=== PATIENT | female | born 1950 | race Caucasian/White ===

== ENCOUNTER 2018-03-27 09:53 | Inpatient (IN) | payer MEDICARE, OTHER ==
[2018-03-27 10:21] LABS: PTT 27.6 SEC (22.9-36.1); Prothrombin Time 13.3 SEC (12.0-14.7)
[2018-03-27] MEDS ORDERED: hydrALAZINE 20 MG/ML VIAL ONE (10:21)
[2018-03-27 10:25] LABS: #Basophils 0.1 thou/uL (0.0-0.2); #Eosinphils 0.3 thou/uL (0.0-0.7); #Monocytes 0.8 thou/uL (0.11-0.59); #Neutrophils 7.6 thou/uL (1.40-6.50); %Basophils 1.3 % (0.0-1.0); %Eosinophils 2.6 % (0.0-10.0); %Lymphocytes 18.9 % (21.0-51.0); %Neutrophils 70.2 % (42.0-75.0); Hemoglobin 16.2 g/dL (12.0-16.0); Mean Corpuscular HGB CONC 33.8 g/dL (32.0-36.0); Mean Corpuscular Hemoglobin 28.4 pg (27.0-31.0); Mean Corpuscular Volume 83.9 fL (78.0-98.0); Mean Platelet Volume 8.3 fL (7.4-10.4); Platelet Count 223 thou/uL (130-400); Red Blood Cell (RBC) Count 5.69 mill/uL (4.20-5.40); White Blood Cell (WBC) Count 10.8 thou/uL (4.8-10.8)
[2018-03-27 10:32] LABS: ALT (SGPT) 32 U/L (8-55); AST (SGOT) 40 U/L (5-34); Albumin 4.1 g/dL (3.4-4.8); Alkaline Phosphatase 149 U/L (40-150); Anion Gap 16 mmol/L (10-20); BUN (Urea Nitrogen) 12 mg/dL (9.8-20.1); Calc. Creatinine Clearance 0 mL/min (70-130); Calcium 9.2 mg/dL (7.8-10.44); Carbon Dioxide 26 mmol/L (23-31); Chloride 99 mmol/L (98-107); Estimated GFR-MDRD 56; Globulin 3.4 g/dL (2.4-3.5); Glucose 382 mg/dL (80-115); Potassium 3.7 mmol/L (3.5-5.1); Protein, Total 7.5 g/dL (6.0-8.3); Sodium 137 mmol/L (136-145)
[2018-03-27 10:33] LABS: CKMB 1.6 ng/mL (0-6.6); Troponin I Less than 0.010 ng/mL (< 0.028)
[2018-03-27] MEDS ORDERED: Ondansetron HCl/PF 4 MG/2 ML Vial ONE ×2 (10:45→16:29)
--- NOTE | 2018-03-27 10:56 | CT ---
BRAIN CT WITHOUT IV CONTRAST: Date: 03/27/18 HISTORY: 67-year-old female with history of left-sided weakness. Last seen normal at 0830 hours. Stroke alert. FINDINGS: No focal mass or midline shift. No intra or extra-axial hemorrhage. Sinuses and mastoids are clear. IMPRESSION: No acute intracranial process. No mass or bleed. Findings discussed with Dr. Decker by phone at approximately 1025 hours. CODE CR. POS: [facility]
--- NOTE | 2018-03-27 11:13 | CT ---
CTA HEAD WITH AND WITHOUT IV CONTRAST UTILIZING IV CONTRAST AND 3D REFORMATTED IMAGING: INDICATIONS: Stroke protocol with slurred speech and left-sided weakness. Last seen normal at 0830 hours. COMPARISON: Noncontrast CT brain dated 03/17/2018 at 10:24 a.m. FINDINGS: No hemodynamically significant stenosis, occlusion, or aneurysmal formation is demonstrated. No abno rmal enhancement is noted. No midline shift is present. The skull and extracranial soft tissues marco ear within normal limits. IMPRESSION: No hemodynamically significant stenosis, occlusion, or aneurysmal formation demonstrated. Findings were called to Dr. Decker at 11:00 a.m. on 03/27/2018. CODE CR POS: [facility]
[2018-03-27] MEDS ORDERED: Nitroglycerin 2% Ointment 1 INCH/1 GM Packet ONE (11:20)
[2018-03-27] MEDS ORDERED: Iopamidol 370 76% 100 ML VIAL ONE (12:54)
[2018-03-27] MEDS ORDERED: Acetaminophen 325 MG TAB ONE (15:28)
[2018-03-27] MEDS ORDERED: Lorazepam 2 MG/ML VIAL ONE (15:45)
[2018-03-27] MEDS ORDERED: Ondansetron ODT 4 MG TAB ONE (16:22)
--- NOTE | 2018-03-27 18:23 | MRI ---
BRAIN MRI WITHOUT CONTRAST: 03/27/18 COMPARISON: None. HISTORY: Slurred speech with left sided weakness, assess for acute infarction. TECHNIQUE: Multiplanar and multisequence MR imaging of the brain is obtained without contrast. FINDINGS: There is a focus of restricted diffusion within the ventral aspect of the awilda just to the right of m idline, measuring 3-4 mm in transverse dimension x 1.2 cm in AP dimension. This is consistent with an acute infarction of the awilda. No additional area of acute infarction is seen. Arterial flow voids at axial level of skull base, appear grossly unremarkable on the T2 weighted imaging. Numerous small foci of increased T2 and FLAIR signal seen throughout the periventricular, deep, and s ubcortical white matter, evidence of significant small vessel disease. Axial gradient echo imaging demonstrates no evidence for intracranial hemorrhage. Regional bone marro w signal intensity appears grossly unremarkable. The visualized paranasal sinuses/mastoid air cells are grossly unremarkable. IMPRESSION: Evidence of acute infarction within the right aspect of the awilda. Evidence of significant small vesse l disease. No intracranial hemorrhage. POS: [facility]
[2018-03-27 20:16] VITALS: BMI 31.1
[2018-03-27] MEDS ORDERED: Acetaminophen 325 MG TAB PO PRN ×2 (20:49→22:18)
[2018-03-27] MEDS ORDERED: Ondansetron ODT 4 MG TAB SL PRN (20:49)
[2018-03-27] MEDS ORDERED: Ondansetron HCl/PF 4 MG/2 ML Vial IVP PRN (20:49)
[2018-03-27] MEDS ORDERED: HumaLOG 300 UNITS/3 ML VIAL SC PRN (21:42)
[2018-03-27] MEDS ORDERED: Dextrose 50% Abboject 50 ML SYRINGE IVP PRN (21:42)
[2018-03-27] MEDS ORDERED: Dextrose 5% in Water 1,000 ML IV PRN (21:42)
[2018-03-27] MEDS ORDERED: HumaLOG 300 UNITS/3 ML VIAL SC SCH (21:45)
[2018-03-27] MEDS ORDERED: Nitroglycerin 2% Ointment 1 INCH/1 GM Packet TOP SCH (22:00)
[2018-03-27 22:26] LABS: Troponin I Less than 0.010 ng/mL (< 0.028)
--- NOTE | 2018-03-28 03:59 | HP ---
REASON FOR ADMISSION: Acute CVA, hypertensive urgency. HISTORY OF PRESENT ILLNESS: The patient gives history of having gone to shopping with her grandkids. She was in [employer] along with her niece and grandkids. The patient suddenly felt funny in her left upper and lower extremity. She was essentially dragging her left foot, as she felt it was heavy. Had the same feeling with her left upper extremity as well, she also had trouble forming words and finally the niece took her to [facility] ER. On arrival in [facility] ER, patient's blood pressure was 220/120. She has had multiple workups done at the ER, which showed acute CVA in the right awilda. patient is right-handed. She is able to move all extremities. Currently, she is feeling better with talking. No complaints of chest pain, headache, palpitation, PND, or orthopnea. PAST MEDICAL AND SURGICAL HISTORY: Hypertension, diabetes mellitus type 2, dyslipidemia, psoriasis, adenoidectomy, tonsillectomy, right knee surgery x3, appendectomy, hysterectomy. CURRENT MEDICATIONS: Patient has not been able to take any medications for the last year and half due to financial issues. She has insurance, but no drug coverage. ALLERGIES: PENICILLIN, SULFA, and BELLADONNA ALKALOIDS. PERSONAL HISTORY: Does not abuse alcohol or drugs. No history of smoking. FAMILY HISTORY: Both parents at the age of 77 years. Mother has had history of stroke. Father of massive VA. Patient has a son who is living and is in his 30s. CODE STATUS: FULL. Power of admin secretary is her son. REVIEW OF SYSTEMS: The following complete review of systems was negative, unless otherwise mentioned in the HPI or below: Constitutional: Weight loss or gain, ability to conduct usual activities. Skin: Rash, itching. Eyes: Double vision, pain. ENT/Mouth: Nose bleeding, neck stiffness, pain, tenderness. Cardiovascular: Palpitations, dyspnea on exertion, orthopnea. Respiratory: Shortness of breath, wheezing, cough, hemoptysis, fever, or night sweats. Gastrointestinal: Poor appetite, abdominal pain, heartburn, nausea, vomiting, constipation, or diarrhea. Genitourinary: Urgency, frequency, dysuria, nocturia. Musculoskeletal: Pain, swelling. Neurologic/Psychiatric: Anxiety, depression. Allergy/Immunologic: Skin rash, bleeding tendency. PHYSICAL EXAMINATION: GENERAL: Patient is a 67-year-old female who is currently not in any acute distress. VITAL SIGNS: Blood pressure of 220/120 on arrival, pulse 82 per minute, respiratory rate 18 per minute, temperature 98.3 degrees Fahrenheit, saturating 96% on room air. NECK: Supple, no elevated JVD. HEENT: Extraocular muscles intact. Pupils reacting to light. Oral cavity, mucous membranes are moist. No exudates or congestion. CARDIOVASCULAR SYSTEM: S1, S2 heard. Regular rhythm. RESPIRATORY SYSTEM: Air entry 2+ bilateral. No rales or rhonchi. ABDOMEN: Soft, bowel sounds heard. No tenderness, rigidity, or guarding. EXTREMITIES: No peripheral edema or calf tenderness. Patient has multiple plaques on both upper and lower extremities and the abdomen as well. CENTRAL NERVOUS SYSTEM: Cranial nerves are grossly intact. Strength left side is 4/5 in upper and lower extremity. Right is 5/5, reflexes are 2+ bilateral. Cerebellar signs are intact. Gait was not tested. PSYCHIATRIC SYSTEM: Patient's mood is euthymic. No hallucinations or delusions. LABORATORY DATA AND X-RAY FINDINGS: EKG done shows sinus rhythm at 72 beats per minute. There are signs of LVH seen. White count of 10, H&H 16 and 47, platelet count 223 with 70% neutrophils, MCV is 83. PT, INR, PTT within normal limits. Electrolytes stable. BUN 12, creatinine 0.9. Serum glucose 382, AST 40, ALT 32, alkaline phosphatase 149. Two sets of troponin is negative. Albumin is 4.1. CT angio head done shows no hemodynamically significant stenosis or occlusion or aneurysm formation. MRI brain shows acute infarct in the right aspect of awilda. There is significant small vessel disease, no intracranial hemorrhage was seen. CT brain done showed no acute intracranial process. CLINICAL IMPRESSION AND PLAN: Patient will be admitted to stroke unit for acute cerebrovascular accident in the right awilda with left-sided mild hemiparesis. She has been noncompliant with medications due to financial reasons. I will place her on full dose of aspirin, Lopressor at 25 mg twice daily and lisinopril at 10 mg daily. We will also place her on glipizide 5 mg twice daily and Lipitor 20 mg p.o. at bedtime. Lipid profile will be obtained in the morning. Stroke protocol will be followed. Upon discharge, patient needs to be placed on 4 dollar pills, so that she can afford medication. Also, she probably will need some sort of medication for her psoriasis. Echo with 2D Doppler for LV function will be obtained. MELISSA
[2018-03-28 05:42] LABS: #Basophils 0.1 thou/uL (0.0-0.2); #Eosinphils 0.3 thou/uL (0.0-0.7); #Lymphocytes 2.4 thou/uL (1.20-3.40); #Neutrophils 6.4 thou/uL (1.40-6.50); %Basophils 0.7 % (0.0-1.0); %Eosinophils 2.6 % (0.0-10.0); %Lymphocytes 23.5 % (21.0-51.0); %Neutrophils 63.3 % (42.0-75.0); Hemoglobin 14.4 g/dL (12.0-16.0); Mean Corpuscular HGB CONC 33.5 g/dL (32.0-36.0); Mean Corpuscular Volume 86.8 fL (78.0-98.0); Mean Platelet Volume 8.1 fL (7.4-10.4); Platelet Count 199 thou/uL (130-400); RBC Distribution Width 12.3 % (11.5-14.5); Red Blood Cell (RBC) Count 4.97 mill/uL (4.20-5.40); White Blood Cell (WBC) Count 10.1 thou/uL (4.8-10.8)
[2018-03-28 05:45] LABS: Anion Gap 11 mmol/L (10-20); BUN (Urea Nitrogen) 11 mg/dL (9.8-20.1); Calc. Creatinine Clearance 90 mL/min (70-130); Carbon Dioxide 31 mmol/L (23-31); Chloride 101 mmol/L (98-107); Cholesterol 204 mg/dl (< 200 Desired); Estimated GFR-MDRD 70; Glucose 156 mg/dL (80-115); HDL Cholesterol 34 mg/dL (>60 Neg Risk); LDL Cholesterol, Calculated 136 mg/dL; Sodium 140 mmol/L (136-145); Triglycerides 169 mg/dL (Less than 150)
[2018-03-28 05:49] LABS: Potassium 2.9 mmol/L (3.5-5.1)
[2018-03-28] MEDS: glipiZIDE 5 MG TAB PO SCH ×2 (06:24→17:19)
[2018-03-28] MEDS: Potassium Chloride 20 MEQ TAB PO SCH ×4 (06:31→23:26)
[2018-03-28] MEDS ORDERED: Metoprolol Tartrate 25 MG TAB PO SCH (09:00)
[2018-03-28] MEDS ORDERED: Lisinopril 10 MG TAB PO SCH (09:00)
[2018-03-28] MEDS: Enoxaparin Sodium 40 MG/0.4 ML SYRINGE SC SCH (09:37)
[2018-03-28] MEDS: Famotidine 20 MG TAB PO SCH ×2 (09:37→22:11)
[2018-03-28] MEDS: Aspirin 325 mg Enteric Coated Tablet PO SCH (09:37)
[2018-03-28] MEDS ORDERED: Loratadine 10 MG TAB PO PRN (10:04)
[2018-03-28] MEDS ORDERED: Eucerin (Mineral Oil/Petrolatum,White) 30 gm Jar TOP PRN (10:04)
[2018-03-28] MEDS ORDERED: Zolpidem Tartrate 5 MG TAB PO PRN (10:04)
[2018-03-28] MEDS ORDERED: Chloraseptic Spray 180 ml Bottle PO PRN (10:04)
[2018-03-28] MEDS ORDERED: Artificial Tears 18 DROP/0.9 ML EA EYE PRN (10:04)
[2018-03-28] MEDS ORDERED: Ondansetron HCl/PF 4 MG/2 ML Vial IVP PRN (10:04)
[2018-03-28] MEDS ORDERED: Mag-Al 1200 mg/1200 mg/30 ML UDCUP PO PRN (10:04)
[2018-03-28] MEDS ORDERED: Diabetic Tussin 200 MG/10 ML UDCUP PO PRN (10:04)
[2018-03-28] MEDS ORDERED: hydrALAZINE 20 MG/ML VIAL SLOW IVP PRN (10:04)
[2018-03-28] MEDS ORDERED: Bisacodyl 10 MG SUPP PR PRN (10:04)
[2018-03-28] MEDS ORDERED: Sodium Chloride 0.65% Nasal 44 ML BOT EA NARE PRN (10:04)
[2018-03-28] MEDS ORDERED: Ondansetron ODT 4 MG TAB PO PRN (10:04)
[2018-03-28] MEDS ORDERED: Lorazepam 1 MG TAB PO PRN (10:04)
[2018-03-28] MEDS ORDERED: HYDROcodone/Acetaminophen 5/325 mg Tablet PO PRN (10:04)
[2018-03-28] MEDS ORDERED: Senokot 8.6 MG TAB PO PRN (10:04)
[2018-03-28] MEDS ORDERED: Milk Of Magnesia 30 ML UDCUP PO PRN (10:04)
[2018-03-28] MEDS ORDERED: Loperamide HCl 2 MG CAP PO PRN (10:04)
--- NOTE | 2018-03-28 11:34 | PDOC.PN ---
- Subjective Encounter Start Date: 03/28/18 Encounter Start Time: 07:20 -: old records requested/rev Patient seen and examined. No new complaints. No overnight events - Objective Resuscitation Status: Resuscitation Status FULL:Full Resuscitation MAR Reviewed: Yes Vital Signs & Weight: Vital Signs (12 hours) Temp Pulse Pulse Pulse Resp BP BP 03/28/18 09:37 97.3 F L 60 16 191/90 H 03/28/18 07:47 97.3 F L 60 16 03/28/18 07:30 58 L 58 L 196/91 H 03/28/18 03:11 98 F 55 L 20 03/27/18 23:42 97.8 F 57 L 20 BP BP BP Pulse Ox 03/28/18 09:37 91 L 03/28/18 07:47 210/110 H 91 L 03/28/18 07:30 210/110 H 03/28/18 03:11 189/82 H 96 03/27/18 23:42 203/86 H 97 Result Diagrams: 03/28/18 05:14 03/28/18 05:14 Additional Labs: Accuchecks 03/28/18 03/28/18 03/27/18 10:48 05:47 21:15 POC Glucose 238 H 156 H 340 H Radiology Reviewed by me: Yes (mri, cta, ct brain ) EKG Reviewed by me: Yes (nsr) Phys Exam - Physical Examination Constitutional: NAD HEENT: PERRLA, moist MMs, sclera anicteric Neck: no JVD, supple Respiratory: no wheezing, no rales, no rhonchi Cardiovascular: RRR, no significant murmur, no rub Gastrointestinal: soft, non-tender, no distention, positive bowel sounds Musculoskeletal: no edema, pulses present Neurological: non-focal, normal sensation, moves all 4 limbs Lymphatic: no nodes Psychiatric: normal affect, A&O x 3 Skin: no rash, normal turgor Dx/Plan (1) Right pontine CVA Code(s): I63.50 - CEREB INFRC DUE TO UNSP OCCLS OR STENOS OF UNSP CEREB ARTERY Status: Acute (2) Hypokalemia Code(s): E87.6 - HYPOKALEMIA Status: Acute (3) Diabetes type 2, uncontrolled Code(s): E11.65 - TYPE 2 DIABETES MELLITUS WITH HYPERGLYCEMIA Status: Chronic (4) Dyslipidemia Code(s): E78.5 - HYPERLIPIDEMIA, UNSPECIFIED Status: Chronic (5) Hypertension Code(s): I10 - ESSENTIAL (PRIMARY) HYPERTENSION Status: Chronic (6) Obesity (BMI 30.0-34.9) Code(s): E66.9 - OBESITY, UNSPECIFIED Status: Chronic - Plan cont current plan of care, plan discussed w/ family, PT/OT, medical social worker * will increase lisinopril * add hydralazin * change metoprolol to coreg * will give latha 4 dollar meds on discharge as she can not afford meds * medication reviewed as below * symptomatic treatment. * will add metformin tomorrow * discussed with family Review of Systems - Review of Systems Eyes: negative: Pain, Vision Change, Conjunctivae Inflammation, Eyelid Inflammation, Redness, Other ENT: negative: Ear Pain, Ear Discharge, Nose Pain, Nose Discharge, Nose Congestion, Mouth Pain, Mouth Swelling, Throat Pain, Throat Swelling, Other Respiratory: negative: Cough, Dry, Shortness of Breath, Hemoptysis, SOB with Excertion, Pleuritic Pain, Sputum, Wheezing Cardiovascular: negative: chest pain, palpitations, orthopnea, paroxysmal nocturnal dyspnea, edema, light headedness, other Gastrointestinal: negative: Nausea, Vomiting, Abdominal Pain, Diarrhea, Constipation, Melena, Hematochezia, Other Genitourinary: negative: Dysuria, Frequency, Incontinence, Hematuria, Retention , Other Musculoskeletal: negative: Neck Pain, Shoulder Pain, Arm Pain, Back Pain, Hand Pain, Leg Pain, Foot Pain, Other Skin: negative: Rash, Lesions, Johnnie, Bruising, Other - Medications/Allergies Allergies/Adverse Reactions: Allergies Allergy/AdvReac Type Severity Reaction Status Date / Time belladonna alkaloids Allergy Verified 03/27/18 19:54 Penicillins Allergy Verified 03/27/18 19:54 Sulfa (Sulfonamide Allergy Verified 03/27/18 19:54 Antibiotics) Medications: Current Medications Acetaminophen (Tylenol) 650 mg PO Q4H PRN PRN Reason: Headache/Fever or Pain Hydrocodone Bitart/Acetaminophen ([place] 5/325) 1 tab PO Q4H PRN PRN Reason: Moderate Pain (4-6) Al Hydroxide/Mg Hydroxide (Maalox) 15 ml PO Q4H PRN PRN Reason: Heartburn or Indigestion Artificial Tears (Tears Naturale) 0 drop EA EYE PRN PRN PRN Reason: Dry Eyes Aspirin (Ecotrin) 325 mg PO DAILY [facility] Last Admin: 03/28/18 09:37 Dose: 325 mg Atorvastatin Calcium (Lipitor) 20 mg PO HS [facility] Bisacodyl (Dulcolax) 10 mg IN DAILYPRN PRN PRN Reason: Constipation Carvedilol (Coreg) 12.5 mg PO BID-[facility] Enoxaparin Sodium (Lovenox) 40 mg SC 0900 [facility] Last Admin: 03/28/18 09:37 Dose: 40 mg Famotidine (Pepcid) 20 mg PO BID [facility] Last Admin: 03/28/18 09:37 Dose: 20 mg Glipizide (Glucotrol) 5 mg PO BID-AC [facility] Last Admin: 03/28/18 06:24 Dose: 5 mg Guaifenesin (Robitussin Sf) 200 mg PO Q4H PRN PRN Reason: Cough Hydralazine HCl (Apresoline) 10 mg SLOW IVP Q4H PRN PRN Reason: Systolic BP > 180 Hydralazine HCl (Apresoline) 25 mg PO BID [facility] Insulin Human Lispro (Humalog) 0 units SC .MODERATE SLIDING SC PRN; Protocol PRN Reason: MODERATE SLIDING SCALE Lisinopril (Zestril) 20 mg PO BID [facility] Loperamide HCl (Imodium) 2 mg PO PRN PRN PRN Reason: Diarrhea/Loose Stools Loratadine (Claritin) 10 mg PO DAILYPRN PRN PRN Reason: Sinus Symptoms Lorazepam (Ativan) 1 mg PO Q4H PRN PRN Reason: Anxiety/Agitation Magnesium Hydroxide (Milk Of Magnesium) 30 ml PO DAILYPRN PRN PRN Reason: Constipation Mineral Oil/White Petrolatum (Eucerin Cream) 0 gm TOP BIDPRN PRN PRN Reason: Dry Skin Ondansetron HCl (Zofran Odt) 4 mg PO Q6H PRN PRN Reason: Nausea/Vomiting Ondansetron HCl (Zofran) 4 mg IVP Q6H PRN PRN Reason: Nausea/Vomiting Phenol (Chloraseptic [place] 180 Ml Bot) 0 ml PO PRN PRN PRN Reason: Sore Throat Potassium Chloride (K-Dur) 40 meq PO Q6HR [facility] Stop: 03/29/18 00:00 Last Admin: 03/28/18 06:31 Dose: 40 meq Senna (Senokot) 2 tab PO HSPRN PRN PRN Reason: Constipation Sodium Chloride ([place] Nasal [place] 0.65%) 0 ml EA NARE QIDPRN PRN PRN Reason: Nasal Congestion Sodium Chloride (Flush - Normal Saline) 10 ml IVF Q12HR [facility] Sodium Chloride (Flush - Normal Saline) 10 ml IVF PRN PRN PRN Reason: Saline Flush Zolpidem Tartrate (Ambien) 5 mg PO HSPRN PRN PRN Reason: Insomnia
--- NOTE | 2018-03-28 15:16 | ULT ---
CAROTID DOPPLER: Ultrasound Doppler study is performed of the extracranial carotid arteries. Color Doppler with spect ral analysis and velocity recordings obtained. INDICATION: CVA. FINDINGS: Ultrasound images show mild echogenic plaque in the bulb regions. Velocity recordings are within nor mal range. Vertebrals show antegrade flow. No evidence of significant stenosis identified in either internal carotid artery by velocity study. IMPRESSION: 1. Mild echogenic plaque seen bilaterally. 2. No evidence of significant stenosis identified. POS: [facility]
[2018-03-28] MEDS: Carvedilol 6.25 MG TAB PO SCH (17:19)
[2018-03-28] MEDS ORDERED: Atorvastatin Calcium 20 MG TAB PO SCH (21:00)
[2018-03-28] MEDS ORDERED: hydrALAZINE 25 MG TAB PO SCH (21:00)
[2018-03-28] MEDS: Lisinopril 20 MG TAB PO SCH (22:10)
--- NOTE | 2018-03-29 00:28 | CON ---
NEUROLOGIC CONSULTATION DATE OF CONSULTATION: 03/28/2018 CONSULTING PHYSICIAN: Hospitalist Service. IMPRESSION: 1. Left pontine infarct with significant improvement in her initial symptoms. 2. Diabetes. 3. Hypertension. 4. Hyperlipidemia. PLAN: 1. Aspirin 81 mg per day. 2. Statin. 3. Follow up with her primary care physician. 4. Follow up on echocardiogram as an outpatient. HISTORY OF PRESENT ILLNESS: Ms. Lomax is a 67-year-old white female who has been noncompliant with [facility] care due to financial issues. She was noted to have some difficulty speaking and that the left side felt a bit weak. She came into the emergency room for evaluation. CT scan did not show any ac megan bleed and MRI of the brain showed a left pontine infarct that was acute. CTA of the carotids and cerebral vessels were all unremarkable. Her lipid panel showed a ratio of 6.0. She reports she has not taken any medication for cholesterol in over 2 years. PAST MEDICAL HISTORY: As listed above. ALLERGIES: BELLADONNA ALKALOIDS, PENICILLIN, AND SULFA. SOCIAL HISTORY: No tobacco or alcohol use. She lives at home independently. FAMILY HISTORY: Noncontributory. REVIEW OF SYSTEMS: No complaint of headache, nausea, vomiting, vertigo, double vision, difficulty sw allowing, lateralized numbness, alteration of consciousness or headache. PHYSICAL EXAMINATION: GENERAL: She is a well-nourished middle-aged woman in no distress. HEENT: Pupils are equal and reactive. Conjunctivae are clear. Oropharynx clear. NECK: Supple. No lymphadenopathy. EXTREMITIES: No cyanosis. NEUROLOGIC: She is alert and appropriate. Her speech is fluent and clear. Cranial nerves II throug h XII are intact. Motor exam showed symmetric strength bilaterally. [id number]-[id number] and zfpm-[id number] movements were equal. Sensation was intact to light touch. She is able to walk independently. IMAGING: EKG showed normal sinus rhythm. SUMMARY: A 67-year-old woman with a lacunar infarction in the awilda, she has done remarkably well. S he has several risk factors, I agree with starting aspirin and a statin bring her cholesterol panel t o a better ratio. I will be happy to follow up with her as an outpatient.
[2018-03-29 07:56] VITALS: TEMP 99.6
[2018-03-29] MEDS ORDERED: hydrALAZINE 25 MG TAB PO SCH (09:00)
[2018-03-29] MEDS: Carvedilol 6.25 MG TAB PO SCH (09:51)
[2018-03-29] MEDS: glipiZIDE 5 MG TAB PO SCH (09:51)
[2018-03-29] MEDS: Enoxaparin Sodium 40 MG/0.4 ML SYRINGE SC SCH (09:52)
[2018-03-29] MEDS: Aspirin 325 mg Enteric Coated Tablet PO SCH (09:52)
[2018-03-29] MEDS: Famotidine 20 MG TAB PO SCH (09:52)
[2018-03-29] MEDS: Lisinopril 20 MG TAB PO SCH (09:53)
--- NOTE | 2018-03-29 09:54 | PDOC.PN ---
- Subjective Encounter Start Date: 03/29/18 Encounter Start Time: 07:20 Patient seen and examined. No new complaints. No overnight events - Objective Resuscitation Status: Resuscitation Status FULL:Full Resuscitation MAR Reviewed: Yes Vital Signs & Weight: Vital Signs (12 hours) Temp Pulse Resp BP BP Pulse Ox 03/29/18 08:10 99.6 F 63 16 92 L 03/29/18 07:55 99.6 F 63 16 172/88 H 92 L 03/29/18 04:31 98.4 F 69 18 173/75 H 94 L 03/29/18 00:28 52 L 03/29/18 00:00 98.1 F 52 L 18 186/78 H 94 L 03/28/18 22:12 63 182/89 H 03/28/18 22:10 98.4 F 52 L 18 182/89 H 91 L I&O: 03/28/18 03/29/18 03/30/18 06:59 06:59 06:59 Intake Total 300 Balance 300 Result Diagrams: 03/28/18 05:14 03/28/18 05:14 Additional Labs: Accuchecks 03/29/18 03/28/18 03/28/18 05:35 20:26 16:57 POC Glucose 142 H 191 H 119 H 03/28/18 10:48 POC Glucose 238 H Radiology Reviewed by me: Yes (echo) EKG Reviewed by me: Yes (nsr) Phys Exam - Physical Examination Constitutional: NAD HEENT: PERRLA, moist MMs, sclera anicteric Neck: no JVD, supple Respiratory: no wheezing, no rales, no rhonchi Cardiovascular: RRR, no significant murmur, no rub Gastrointestinal: soft, non-tender, no distention, positive bowel sounds Musculoskeletal: no edema, pulses present Neurological: non-focal, normal sensation, moves all 4 limbs Lymphatic: no nodes Psychiatric: normal affect, A&O x 3 Skin: no rash, normal turgor Dx/Plan (1) Right pontine CVA Code(s): I63.50 - CEREB INFRC DUE TO UNSP OCCLS OR STENOS OF UNSP CEREB ARTERY Status: Acute (2) Hypokalemia Code(s): E87.6 - HYPOKALEMIA Status: Acute (3) Diabetes type 2, uncontrolled Code(s): E11.65 - TYPE 2 DIABETES MELLITUS WITH HYPERGLYCEMIA Status: Chronic (4) Dyslipidemia Code(s): E78.5 - HYPERLIPIDEMIA, UNSPECIFIED Status: Chronic (5) Hypertension Code(s): I10 - ESSENTIAL (PRIMARY) HYPERTENSION Status: Chronic (6) Obesity (BMI 30.0-34.9) Code(s): E66.9 - OBESITY, UNSPECIFIED Status: Chronic - Plan cont current plan of care * medication reviewed as below * symptomatic treatment * stable for discharge * see discharge summery * discharge medication reconciliation done. Review of Systems - Review of Systems Eyes: negative: Pain, Vision Change, Conjunctivae Inflammation, Eyelid Inflammation, Redness, Other ENT: negative: Ear Pain, Ear Discharge, Nose Pain, Nose Discharge, Nose Congestion, Mouth Pain, Mouth Swelling, Throat Pain, Throat Swelling, Other Respiratory: negative: Cough, Dry, Shortness of Breath, Hemoptysis, SOB with Excertion, Pleuritic Pain, Sputum, Wheezing Cardiovascular: negative: chest pain, palpitations, orthopnea, paroxysmal nocturnal dyspnea, edema, light headedness, other Gastrointestinal: negative: Nausea, Vomiting, Abdominal Pain, Diarrhea, Constipation, Melena, Hematochezia, Other Genitourinary: negative: Dysuria, Frequency, Incontinence, Hematuria, Retention , Other Musculoskeletal: negative: Neck Pain, Shoulder Pain, Arm Pain, Back Pain, Hand Pain, Leg Pain, Foot Pain, Other Skin: negative: Rash, Lesions, Johnnie, Bruising, Other - Medications/Allergies Allergies/Adverse Reactions: Allergies Allergy/AdvReac Type Severity Reaction Status Date / Time belladonna alkaloids Allergy Verified 03/27/18 19:54 Penicillins Allergy Verified 03/27/18 19:54 Sulfa (Sulfonamide Allergy Verified 03/27/18 19:54 Antibiotics) Medications: Current Medications Acetaminophen (Tylenol) 650 mg PO Q4H PRN PRN Reason: Headache/Fever or Pain Hydrocodone Bitart/Acetaminophen ([place] 5/325) 1 tab PO Q4H PRN PRN Reason: Moderate Pain (4-6) Al Hydroxide/Mg Hydroxide (Maalox) 15 ml PO Q4H PRN PRN Reason: Heartburn or Indigestion Artificial Tears (Tears Naturale) 0 drop EA EYE PRN PRN PRN Reason: Dry Eyes Aspirin (Ecotrin) 325 mg PO DAILY [facility] Last Admin: 03/29/18 09:52 Dose: 325 mg Atorvastatin Calcium (Lipitor) 20 mg PO HS [facility] Last Admin: 03/28/18 22:12 Dose: 20 mg Bisacodyl (Dulcolax) 10 mg MD DAILYPRN PRN PRN Reason: Constipation Carvedilol (Coreg) 12.5 mg PO BID-[facility] Last Admin: 03/29/18 09:51 Dose: 12.5 mg Enoxaparin Sodium (Lovenox) 40 mg SC 0900 [facility] Last Admin: 03/29/18 09:52 Dose: Not Given Famotidine (Pepcid) 20 mg PO BID [facility] Last Admin: 03/29/18 09:52 Dose: 20 mg Glipizide (Glucotrol) 5 mg PO BID-AC [facility] Last Admin: 03/29/18 09:51 Dose: 5 mg Guaifenesin (Robitussin Sf) 200 mg PO Q4H PRN PRN Reason: Cough Hydralazine HCl (Apresoline) 10 mg SLOW IVP Q4H PRN PRN Reason: Systolic BP > 180 Last Admin: 03/29/18 00:28 Dose: 10 mg Hydralazine HCl (Apresoline) 25 mg PO TID [facility] Last Admin: 03/29/18 09:53 Dose: 25 mg Insulin Human Lispro (Humalog) 0 units SC .MODERATE SLIDING SC PRN; Protocol PRN Reason: MODERATE SLIDING SCALE Last Admin: 03/28/18 13:06 Dose: 4 unit Lisinopril (Zestril) 20 mg PO BID [facility] Last Admin: 03/29/18 09:53 Dose: 20 mg Loperamide HCl (Imodium) 2 mg PO PRN PRN PRN Reason: Diarrhea/Loose Stools Loratadine (Claritin) 10 mg PO DAILYPRN PRN PRN Reason: Sinus Symptoms Lorazepam (Ativan) 1 mg PO Q4H PRN PRN Reason: Anxiety/Agitation Magnesium Hydroxide (Milk Of Magnesium) 30 ml PO DAILYPRN PRN PRN Reason: Constipation Mineral Oil/White Petrolatum (Eucerin Cream) 0 gm TOP BIDPRN PRN PRN Reason: Dry Skin Ondansetron HCl (Zofran Odt) 4 mg PO Q6H PRN PRN Reason: Nausea/Vomiting Ondansetron HCl (Zofran) 4 mg IVP Q6H PRN PRN Reason: Nausea/Vomiting Phenol (Chloraseptic [place] 180 Ml Bot) 0 ml PO PRN PRN PRN Reason: Sore Throat Senna (Senokot) 2 tab PO HSPRN PRN PRN Reason: Constipation Sodium Chloride ([place] Nasal [place] 0.65%) 0 ml EA NARE QIDPRN PRN PRN Reason: Nasal Congestion Sodium Chloride (Flush - Normal Saline) 10 ml IVF Q12HR [facility] Last Admin: 03/29/18 09:50 Dose: Not Given Sodium Chloride (Flush - Normal Saline) 10 ml IVF PRN PRN PRN Reason: Saline Flush Zolpidem Tartrate (Ambien) 5 mg PO HSPRN PRN PRN Reason: Insomnia
[2018-03-29 10:52] VITALS: BP 199/89
--- NOTE | 2018-03-29 12:11 | DIS ---
DATE OF ADMISSION: 03/27/2018 DATE OF DISCHARGE: 03/29/2018 PRIMARY CARE PHYSICIAN: Rj Tony D.O. DISCHARGE DISPOSITION: Home. PRIMARY DISCHARGE DIAGNOSES: Right pontine cerebrovascular accident, hypokalemia. SECONDARY DISCHARGE DIAGNOSES: Left ventricular hypertrophy, obesity with BMI 31, hypertension, dysl ipidemia, diabetes type 2, medication noncompliance. PRIMARY PROCEDURE/OPERATION: None. RADIOLOGICAL INVESTIGATION: CT brain was negative for any acute intracranial process. CT [place] was also negative for any acute intracranial process. MRI brain showed right pontine cerebrov ascular accident. Carotid Doppler showed atherosclerotic plaque, but no acute stenosis. Echocardiog dexter showed LVH. SIGNIFICANT LABORATORY DATA: WBC 10.1, hemoglobin 14.4, platelet 199. INR 1.0. Sodium 140, potassi um 2.9, BUN 11, creatinine 0.82, LDL 136, cholesterol 204, triglyceride 169, AST 40, ALT 32, alkaline phosphatase is 149. Cardiac enzymes negative. Albumin 4.1. DISCHARGE MEDICATIONS: Aspirin 325 mg p.o. daily, Lipitor 20 mg p.o. at bedtime, Coreg 12.5 mg p.o. b.i.d., glipizide 5 mg p.o. b.i.d., hydralazine 25 mg p.o. t.i.d., lisinopril 20 mg p.o. b.i.d. CONTRAINDICATIONS: None. CODE STATUS: FULL CODE. INPATIENT CONSULTANTS: Dr. Bigg Mary, neurologist, was consulted while in hospital. TEST RESULTS PENDING ON DISCHARGE: None. ALLERGIES: BELLADONNA ALKALOIDS, PENICILLIN, and SULFA. DISCHARGE PLAN: Post hospital, the patient will follow up with primary care physician in 1 week. HOSPITAL COURSE: A 67-year-old female who has medication noncompliance. She has multiple risk facto rs for stroke and she was not taking any medication because she cannot afford medication. The patien brissa was admitted by Dr. Leyva on 03/27/2018. She went to [facility] be cause she was having difficulty walking as well as difficulty speaking. Initial CT brain and CT [place] was negative. Subsequently, the patient had MRI brain that showed right pontine CVA. T he patient's weakness significantly improved. She was not tracking while in hospital. She was hyper tensive while in hospital and that is why we have to start above-mentioned medications. Her choleste rol is also very high and that is why we started statin therapy. At this point, the patient is kept on Coreg and lisinopril for blood pressure and subsequently, we added hydralazine as well. She will follow up with primary care physician for further adjustment of medication. Necessary patient educat ion about compliance with medication and dietary education. Healthy lifestyle discussed with the narayan tirado. The patient was evaluated by Neurology and they recommended aspirin therapy, statin therapy and blood pressure control and risk factor modification. The patient had hypokalemia which was corrected with replacement. The patient is overall doing very well. She is ambulatory. She does not have any weakness. She wan ts to go home today. The patient is seen and examined at bedside today. Please see my progress note from today for further detail.
--- NOTE | 2018-03-30 22:09 | EKG ---
Test Reason : Blood Pressure : / mmHG Vent. Rate : 072 BPM Atrial Rate : 072 BPM P-R Int : 160 ms QRS Dur : 090 ms QT Int : 442 ms P-R-T Axes : 012 -44 039 degrees QTc Int : 483 ms Sinus rhythm with occasional Premature ventricular complexes Left axis deviation Voltage criteria for left ventricular hypertrophy Cannot rule out Septal infarct , age undetermined Nonspecific ST abnormalty Abnormal ECG Confirmed by UBALDO SONI, LAVON ([id number]), metropolitan editor SHANON FLORENCE ([id number]) on 03/30/2018 10:09:09 PM Referred By: Confirmed By:LAVON CONNER MD
== END 2018-03-29 11:10 | disposition home or self-care (01) | DRG 65 ==
LOC: SCSER 09:53 → 2SE 18:36
PROVIDERS: ADMIT Internal Medicine; ATTEND Internal Medicine
DX: I63.8 Other cerebral infarction (principal); G81.94 Hemiplegia, unspecified affecting left nondominant side; Z88.0 Allergy status to penicillin; Z88.2 Allergy status to sulfonamides; Z88.8 Allergy status to other drugs, medicaments and biological substances; I16.0 Hypertensive urgency; I10 Essential (primary) hypertension; E66.9 Obesity, unspecified; Z68.31 Body mass index [BMI] 31.0-31.9, adult; E78.5 Hyperlipidemia, unspecified; Z91.19 Patient's noncompliance with other medical treatment and regimen; E11.9 Type 2 diabetes mellitus without complications; E87.6 Hypokalemia; R29.713 NIHSS score 13
CPT/HCPCS: 36415; 36416; 70450; 70496; 70551; 80048; 80053; 80061; 82553; 84484; 85025; 85610; 85730; 93005; 93306; 93880; 96374; 96375; 96376; A4216; G8978-GP-CJ; G8979-GP-CJ; G8980-GP-CJ; G8987-GO-CJ; G8988-GO-CI; G8999-GN-CH; G9158-GN-CH; G9186-GN-CH; J0360; J1650; J2060; J2405; Q0162

== ENCOUNTER 2018-04-05 09:26 | Emergency (ER) | payer MEDICARE, OTHER | END 2018-04-05 10:48 | LOC: ERS 09:26 | DX: I10 Essential (primary) hypertension (principal); E11.9 Type 2 diabetes mellitus without complications; J45.909 Unspecified asthma, uncomplicated; E78.5 Hyperlipidemia, unspecified; Z79.891 Long term (current) use of opiate analgesic; Z79.899 Other long term (current) drug therapy | CPT/HCPCS: 36416; 99283 ==

== ENCOUNTER 2019-08-13 16:43 | Emergency (ER) | payer MEDICARE ==
--- NOTE | 2019-08-13 17:11 | RAD ---
XR Foot Rt 3 View STANDARD HISTORY: Injury, pain to the great toe FINDINGS: No fracture or dislocation is identified.
== END 2019-08-13 17:36 | disposition home or self-care (01) ==
LOC: ERS 16:43
DX: S90.31XA Contusion of right foot, initial encounter (principal); E11.9 Type 2 diabetes mellitus without complications; E78.5 Hyperlipidemia, unspecified; E78.00 Pure hypercholesterolemia, unspecified; I10 Essential (primary) hypertension; J45.909 Unspecified asthma, uncomplicated; Z86.73 Personal history of transient ischemic attack (TIA), and cerebral infarction without residual deficits; Z79.82 Long term (current) use of aspirin; Z79.899 Other long term (current) drug therapy; Z79.84 Long term (current) use of oral hypoglycemic drugs; W20.8XXA Other cause of strike by thrown, projected or falling object, initial encounter

== ENCOUNTER 2020-11-11 19:10 | Inpatient (IN) | payer MEDICARE ==
[~2020-11-11 19:10] MED LIST: Dexamethasone 20 MG/5 ML VIAL ONE; Glycopyrrolate 0.2 MG/ML 5 ML SYRINGE ONE; Lidocaine 1% PF 5 ML VIAL ONE; Ondansetron PF 4 MG/2 ML Vial ONE; PROPOFOL 200 MG/20 ML VIAL ONE; Rocuronium Bromide 10 MG/ML (10ML VIAL) ONE; Succinylcholine 200 MG/10 ml SYRINGE FS ONE
[2020-11-11] MEDS ORDERED: Fentanyl 100 MCG/2 ML VIAL ONE (20:32)
[2020-11-11] MEDS ORDERED: Iothalamate Meglumine 60% 50 ML VIAL FS ONE (20:34)
[2020-11-11] MEDS ORDERED: Ondansetron ODT 4 MG TAB PO PRN (21:29)
[2020-11-11] MEDS ORDERED: Bisacodyl 5 MG TAB PO PRN (21:29)
[2020-11-11] MEDS ORDERED: SUGAMMADEX SODIUM 500 MG/5 ML VIAL ONE (21:39)
[2020-11-11] MEDS ORDERED: Labetalol HCl 100 MG/20 ML VIAL ONE (21:49)
[2020-11-11] MEDS ORDERED: Ondansetron HCl/PF 4 MG/2 ML Vial IVP PRN (21:51)
[2020-11-11] MEDS ORDERED: Labetalol HCl 100 MG/20 ML VIAL SLOW IVP SCH (22:00)
[2020-11-11] MEDS ORDERED: Ondansetron PF 4 MG/2 ML Vial ONE (22:27)
[2020-11-11 23:23] VITALS: BMI 32.1
[2020-11-11] MEDS ORDERED: Metoclopramide HCl 10 MG/2 ML VIAL IVP SCH (23:45)
[2020-11-12] MEDS ORDERED: Labetalol HCl 100 MG/20 ML VIAL SLOW IVP PRN (01:10)
[2020-11-12] MEDS ORDERED: hydrALAZINE 20 MG/ML VIAL SLOW IVP PRN (01:10)
--- NOTE | 2020-11-12 01:11 | PDOC.HHP ---
Hospitalist HPI fever, leg pain History of Present Illness: Patient is a 70 year old female with PMH T2DM, HLD, HTN, seasonal asthma, CVA in 2018 who presents as transfer from [facility] for sepsis and infected kidney stone. Patient symptoms began 3 days ago w/ L leg pain, fever, nausea, anorexia, diarrhea and dysuria. She went to [facility], work up there included CT A/P which was significant for bilateral nephrolithiasis as well as L ureteral calculus w/ mild L hydronephrosis. She was septic w/ fever to 103 and WBC 19 with UA positive for UTI. Dr Sims consulted from [place], he recommended transfer to [facility] patient was taken to OR for stent placement, she is on floor now, pain has improved and symptoms overall better now, started on abx by ED and urology, ceftriaxone. Allergies/Adverse Reactions: Allergy/AdvReac Type Severity Reaction Status Date / Time belladonna alkaloids Allergy Verified 12/05/19 21:32 Penicillins Allergy Verified 12/05/19 21:32 Sulfa (Sulfonamide Allergy Verified 12/05/19 21:32 Antibiotics) Home Medications: Medication Instructions Recorded Confirmed Type Aspirin [Ecotrin Regular Strength] 325 mg PO DAILY #30 tab 03/29/18 Rx Atorvastatin Calcium [Lipitor] 20 mg PO HS #30 tab 03/29/18 11/12/20 Rx Carvedilol [Coreg] 12.5 mg PO BID #60 tab 03/29/18 11/12/20 Rx hydrALAZINE [Apresoline] 25 mg PO BID 11/12/20 11/12/20 History metFORMIN [Glucophage] 1,000 mg PO BID 11/12/20 11/12/20 History Past History: MEDICAL HISTORY diabetes, Type II, hyperlipidemia, high cholesterol, hypertension, asthma (SEASONAL, stroke 2018. SURGICAL HISTORY adenoids, tonsillectomy, RIGTH KNEE X3, appendectomy, hysterectomy. FAMILY HISTORY no significant family history SOCIAL HISTORY Patient drinks socially, twice a month, Lives at home, with family, Patient denies drug use, Patient has no smoking history. Hospitalist CITLALI BILLS Constitutional: reports: fever, chills, weakness, malaise. denies: sweats, other Eyes: denies: pain, vision change, conjunctivae inflammation, eyelid inflammation, redness, other ENT: denies: ear pain, ear discharge, nose pain, nose discharge, nose congestion, mouth pain, mouth swelling, throat pain, throat swelling, other Respiratory: denies: cough, dry, shortness of breath, hemoptysis, SOB with excertion, pleuritic pain, sputum, wheezing, other Cardiovascular: denies: chest pain, palpitations, orthopnea, paroxysmal noc. dyspnea, edema, light headedness, other Gastrointestinal: reports: nausea, vomiting, abdominal pain, diarrhea, other (flank pain). denies: constipation, melena, hematochezia Genitourinary: reports: dysuria. denies: frequency, incontinence, hematuria, retention, other Musculoskeletal: reports: back pain. denies: neck pain, shoulder pain, arm pain, hand pain, leg pain, foot pain, other Skin: denies: rash, lesions, shasha, bruising, other Neurological: denies: weakness, numbness, incoordination, change in speech, confusion, seizures, other All other systems reviewed; all pertinent +/- noted in HPI/Subj Hospitalist Exam Vitals: Vital Signs (12 hours) Temp Pulse Resp BP BP Pulse Ox 11/11/20 22:52 94 L 11/11/20 22:45 97.6 F 93 20 154/84 H 93 L 11/11/20 21:50 103 H 203/106 H Weight Weight 192 lb 11.2 oz General Appearance: NAD, awake alert Eye: PERRL, anicteric sclera ENT: normocephalic atraumatic, no oropharyngeal lesions, moist mucosa Neck: supple, symmetric, no JVD, no thyromegaly, no lymphadenopathy, no carotid bruit Heart: RRR, no murmur, no gallops, no rubs, normal peripheral pulses Respiratory: CTAB, no wheezes, no rales, no ronchi, normal chest expansion, no tachypnea, normal percussion Gastrointestinal: soft, non-tender, non-distended, normal bowel sounds, no palpable masses, no hepatomegaly, no splenomegaly, no bruit Extremities: no cyanosis, no clubbing, no edema Skin: normal turgor, no lesions, no rashes Neurological: cranial nerve grossly intact, normal sensation to touch, no weakness, no focal deficits, no new deficit Musculoskeletal: normal tone, normal strength, no muscle wasting Psychiatric: normal affect, normal behavior, A&O x 3 Hospitalist Results Additional comment: labs, imaging, ED documents, medications, vitals reviewed from this hospital and [facility]. Hospitalist H&P A/P Plan: Patient is a 70 year old female with PMH T2DM, HLD, HTN, seasonal asthma, CVA in 2018 who presents as transfer from [facility] for sepsis and infected kidney stone. # nephrolithiasis # UTI # sepsis # infected stone suspected Patient symptoms began 3 days ago w/ L leg pain, fever, nausea, anorexia, diarrhea and dysuria. She went to [facility], work up there included CT A/P which was significant for bilateral nephrolithiasis as well as L ureteral calculus w/ mild L hydronephrosis. She was septic w/ fever to 103 and WBC 19 with UA positive for UTI. Dr Sims consulted from [place], he recommended transfer to [facility] patient was taken to OR for stent placement, she is on floor now, pain has improved and symptoms overall better now, started on abx by ED and urology, ceftriaxone. - admit to floor - continue abx - follow cultures - IVF - patient is s/p ureteral stone placement by Dr Sims 11/11/20 # T2DM - SSI # HLD - resume home medications # seasonal asthma - PRN nebs ordered # fatty liver disease - outpatient management recommended
[2020-11-12] MEDS: cefTRIAXone\\ROCEPHIN 2 GM in Sodium Chloride 0.9% 100 ML IVPB SCH ×2 (01:43→23:47)
[2020-11-12] MEDS: Sodium Chloride 0.9% 1,000 ML IV SCH ×2 (01:43→06:07)
--- NOTE | 2020-11-12 02:47 | CON ---
DATE OF CONSULTATION: 11/11/2020 REASON FOR CONSULTATION: Fever, flank pain, left UPJ stone. HISTORY OF PRESENT ILLNESS: Ms. Lomax is a 70-year-old female, presented to the emergency room today with a several-day history of a painful migraine. On presentation to the emergency room, she admitted to additional complaints of nausea, vomiting, and abdominal discomfort. She also had a fever of 102 degrees with chills. As part of her workup, a CT scan was performed. The CT scan demonstrates a 10 mm stone at the left UPJ. There were some additional small nonobstructing stones in both the right and left kidney. She denies any prior history of stone disease. She did not notice any gross hematuria. Further evaluation in the emergency room also demonstrated elevated white blood cell count, elevated lactic acid level, and bacteria in her urine. A urine culture has been sent and she has been given ceftriaxone in the emergency room. I was consulted for further evaluation and treatment. PAST MEDICAL HISTORY: Significant for type 2 diabetes mellitus, hyperlipidemia, high cholesterol, hypertension, seasonal asthma, CVA in 2018. PAST SURGICAL HISTORY: Includes right knee surgery x3, appendectomy, tonsillectomy, adenoidectomy, hysterectomy. SOCIAL HISTORY: She drinks alcohol one or two times a month, but not to excess. She is a nonsmoker. ALLERGIES: BELLADONNA, PENICILLIN, SULFA. FAMILY HISTORY: Noncontributory. REVIEW OF SYSTEMS: RESPIRATORY: No recent problems with her asthma. CARDIOVASCULAR: Denies chest pain or palpitations. GASTROINTESTINAL: Denies chronic constipation or diarrhea. GENITOURINARY: Please see history of present illness. PHYSICAL EXAMINATION: VITAL SIGNS: Most recent blood pressure 145/94, pulse 76, respiratory rate 18, O2 saturation 95% on room air. GENERAL: She is awake and alert. She is in no distress at this time. CHEST: Clear to auscultation. No wheezing noted. CARDIOVASCULAR: Regular rate and rhythm. No murmurs auscultated. ABDOMEN: Soft, nontender. No palpable masses. No peritoneal signs. EXTREMITIES: No edema. LABORATORY DATA AND IMAGING: White count 19.1, hemoglobin 14.6, hematocrit 44.3. Creatinine 1.51. COVID testing negative. CT scan; a 10 mm left UPJ stone with proximal hydronephrosis, 2 mm or smaller stones noted in both the left and right kidney, nonobstructing. IMPRESSION: Ms. Lomax has a left ureteropelvic junction stone, unlikely to pass with evidence of proximal hydronephrosis. She also has signs and symptoms consistent with urinary tract infection including abnormal urinalysis, elevated white blood cell count, and fever. I recommended upper urinary tract drainage by left ureteral stent placement. The procedure, potential limitations, alternatives, and complications have been discussed with her. She does wish to proceed. PLAN: Cystoscopy, left double-J stent placement. Job ID: [id number]
--- NOTE | 2020-11-12 03:41 | OP ---
DATE OF PROCEDURE: 11/11/2020 PREOPERATIVE DIAGNOSIS: Left ureteropelvic junction stone. POSTOPERATIVE DIAGNOSIS: Left ureteropelvic junction stone. PROCEDURES PERFORMED: Cystoscopy, left double-J stent placement. ANESTHESIA: General. INDICATIONS FOR PROCEDURE: Ms. Lomax is a 70-year-old female with a left UPJ stone, elevated white count, and fever. She is being brought to the operating room for left ureteral stent placement. DESCRIPTION OF PROCEDURE: The patient was given general anesthesia and IV antibiotics. She was sterilely prepped and draped in the lithotomy position. Cystoscope was passed into the bladder. Bladder was examined in its entirety. There were no mucosal lesions seen. The left ureteral orifice was intubated with a floppy tip guidewire, which was passed cephalad under fluoroscopic control. A 6 x 24 double-J stent was passed over the guidewire and coiled in the left renal pelvis and in the bladder as determined fluoroscopically and cystoscopically. The string was cut. The bladder was drained. The cystoscope was removed. The patient tolerated the procedure well and was transferred to the recovery room in stable condition. COMPLICATION: None. ESTIMATED BLOOD LOSS: Minimal. SPECIMENS: None. Job ID: [id number]
[2020-11-12] MEDS ORDERED: Dextrose 5% in Water 1,000 ML IV PRN (06:12)
[2020-11-12] MEDS ORDERED: Dextrose 50% Abboject 50 ML SYRINGE SLOW IVP PRN (06:12)
[2020-11-12 06:30] LABS: #Basophils 0.2 thou/uL (0.0-0.2); #Lymphocytes 0.3 thou/uL (1.20-3.40); #Monocytes 0.2 thou/uL (0.11-0.59); #Neutrophils 14.1 thou/uL (1.40-6.50); %Basophils 1.1 % (0.0-1.0); %Eosinophils 0.1 % (0.0-10.0); %Lymphocytes 2.1 % (21.0-51.0); %Monocytes 1.3 % (0.0-10.0); %Neutrophils 95.4 % (42.0-75.0); Hemoglobin 13.2 g/dL (12.0-16.0); Mean Corpuscular HGB CONC 33.5 g/dL (32.0-36.0); Mean Corpuscular Hemoglobin 28.5 pg (27.0-31.0); Mean Corpuscular Volume 85.3 fL (78.0-98.0); Mean Platelet Volume 9.6 fL (7.4-10.4); Platelet Count 178 thou/uL (130-400); RBC Distribution Width 12.8 % (11.5-14.5); Red Blood Cell (RBC) Count 4.61 mill/uL (4.20-5.40); White Blood Cell (WBC) Count 14.8 thou/uL (4.8-10.8)
[2020-11-12] MEDS: HumaLOG 300 UNITS/3 ML VIAL SC PRN ×3 (06:56→21:32)
[2020-11-12 07:01] LABS: Anion Gap 16 mmol/L (10-20); BUN (Urea Nitrogen) 29 mg/dL (9.8-20.1); BUN/Creatinine Ratio 21.48; Calc. Creatinine Clearance 54 mL/min (70-130); Calcium 8.3 mg/dL (7.8-10.44); Carbon Dioxide 21 mmol/L (23-31); Chloride 98 mmol/L (98-107); Glucose 281 mg/dL (80-115); Phosphorus 3.6 mg/dL (2.3-4.7); Sodium 132 mmol/L (136-145)
[2020-11-12] MEDS: hydrALAZINE 25 MG TAB PO SCH ×3 (08:19→20:42)
[2020-11-12] MEDS: metFORMIN 500 MG TAB PO SCH ×2 (08:19→17:35)
[2020-11-12] MEDS: Enoxaparin Sodium 30 MG/0.3 ML SYRINGE SC SCH (08:20)
[2020-11-12] MEDS: Famotidine 20 MG TAB PO SCH (08:20)
[2020-11-12] MEDS: Carvedilol 6.25 MG TAB PO SCH ×2 (08:20→17:34)
[2020-11-12] MEDS ORDERED: Potassium Chloride 20 MEQ TAB PO SCH (08:45)
--- NOTE | 2020-11-12 14:20 | PDOC.HOSPP ---
- Subjective Encounter Date: 11/12/20 Encounter Time: 09:20 Subjective: Patient seen this morning. She does not have any acute complaints or concerns other than quite anxious to go home. status post left ureteral stent placement. She needs to follow-up with a urologist as outpatient. Currently she has elevated blood pressure on the high white count obviously related to the infection as well as post procedure. - Objective Vital Signs & Weight: Vital Signs (12 hours) Temp Pulse Resp BP BP Pulse Ox 11/12/20 11:55 97.6 F 71 14 121/77 95 11/12/20 08:20 171/81 H 11/12/20 08:19 82 171/81 H 11/12/20 08:00 97.7 F 69 14 171/81 H 95 11/12/20 07:00 98.0 F 82 20 131/79 95 11/12/20 03:29 98.2 F 80 18 138/81 96 11/12/20 02:30 98.2 F 81 18 131/80 95 Weight Admit Weight 192 lb 11.2 oz Weight 192 lb 11.2 oz I&O: 11/11/20 11/12/20 11/13/20 06:59 06:59 06:59 Intake Total 900 Output Total 520 Balance 380 Result Diagrams: 11/12/20 05:45 11/12/20 05:45 Additional Labs: Accuchecks 11/12/20 11/12/20 11:52 06:51 POC Glucose 257 H 264 H Hospitalist ROS - Medication Medications: Active Medications Generic Name Dose Route Start Last Admin Trade Name Freq PRN Reason Stop Dose Admin Carvedilol 12.5 mg 11/12/20 08:00 11/12/20 08:20 Carvedilol 6.25 Mg Tab PO 12.5 mg BID-WM PRATIK Administration Enoxaparin Sodium 30 mg 11/12/20 09:00 11/12/20 08:20 Enoxaparin Sodium 30 Mg/0.3 Ml Syringe SC 30 mg 0900 PRATIK Administration Famotidine 20 mg 11/12/20 09:00 11/12/20 08:20 Famotidine 20 Mg Tab PO 20 mg DAILY PRATIK Administration Hydralazine HCl 25 mg 11/12/20 09:00 11/12/20 08:19 Hydralazine 25 Mg Tab PO 25 mg TID PRATIK Administration Sodium Chloride 1,000 mls @ 75 mls/hr 11/11/20 22:00 11/12/20 06:07 Normal Saline 0.9% IV 1,000 mls .[id number] PRATIK Administration Ceftriaxone Sodium 2 gm/ 100 mls @ 200 mls/hr 11/11/20 22:00 11/12/20 01:43 Sodium Chloride IVPB Not Given 2200 [facility] Insulin Human Lispro 0 units 11/12/20 06:12 11/12/20 12:31 Humalog 300 Units/3 Ml Vial SC 4 unit .MILD SLIDING SCALE PRN Administration Mild Correctional Scale Metformin HCl 1,000 mg 11/12/20 08:00 11/12/20 08:19 Metformin 500 Mg Tab PO 1,000 mg BID-WM PRATIK Administration Hospitalist Exam Vitals: Vital Signs (12 hours) Temp Pulse Resp BP BP Pulse Ox 11/12/20 11:55 97.6 F 71 14 121/77 95 11/12/20 08:20 171/81 H 11/12/20 08:19 82 171/81 H 11/12/20 08:00 97.7 F 69 14 171/81 H 95 11/12/20 07:00 98.0 F 82 20 131/79 95 11/12/20 03:29 98.2 F 80 18 138/81 96 11/12/20 02:30 98.2 F 81 18 131/80 95 Weight Admit Weight 192 lb 11.2 oz Weight 192 lb 11.2 oz General Appearance: NAD, awake alert Eye: PERRL ENT: normocephalic atraumatic Neck: supple Heart: RRR Respiratory: CTAB, normal chest expansion Gastrointestinal: soft, normal bowel sounds Neurological: no focal deficits Musculoskeletal: generalized weakness Psychiatric: normal affect, normal behavior, A&O x 3 Hosp A/P - Plan 10 year old female with PMH T2DM, HLD, HTN, seasonal asthma, CVA in 2018 who presents as transfer from [facility] for sepsis and infected kidney stone. # nephrolithiasis # UTI # sepsis # infected stone suspected Patient symptoms began 3 days ago w/ L leg pain, fever, nausea, anorexia, diarrhea and dysuria. [facility] CT A/P which was significant for bilateral nephrolithiasis as well as L ureteral calculus w/ mild L hydronephrosis. S - Dr Sims consulted from [place], s/p stent placement, - patient is s/p ureteral stone placement by Dr Sims 11/11/20 -Follow-up on the clinical pro progression. There is no cultures.-Follow-up on the WBC trend continue the ceftriaxone for another 24 hours and then can be discharged with Augmentin if she is clinically stable. Accelerated hypertension -possibly related to the stress. She is on hydralazine home dose along with as needed as well as labetalol. She also continues with the Coreg home dose. # T2DM - SSI -On Metformin # HLD - resume home medications # seasonal asthma - PRN nebs ordered She continued to improve under white count normalized then DC with Augmentin likely tomorrow. Follows with the urologist for drain removal.
[2020-11-13] MEDS: Sodium Chloride 0.9% 1,000 ML IV SCH (01:39)
[2020-11-13 06:02] LABS: #Lymphocytes 0.7 thou/uL (1.20-3.40); #Monocytes 0.6 thou/uL (0.11-0.59); #Neutrophils 11.9 thou/uL (1.40-6.50); %Basophils 0.1 % (0.0-1.0); %Eosinophils 0.3 % (0.0-10.0); %Lymphocytes 5.6 % (21.0-51.0); %Monocytes 4.5 % (0.0-10.0); %Neutrophils 89.5 % (42.0-75.0); Mean Corpuscular HGB CONC 32.4 g/dL (32.0-36.0); Mean Corpuscular Hemoglobin 27.9 pg (27.0-31.0); Mean Platelet Volume 9.2 fL (7.4-10.4); Platelet Count 213 thou/uL (130-400); Red Blood Cell (RBC) Count 4.66 mill/uL (4.20-5.40); White Blood Cell (WBC) Count 13.3 thou/uL (4.8-10.8)
[2020-11-13] MEDS: Acetaminophen 325 MG TAB PO PRN ×2 (06:44→17:51)
[2020-11-13 06:51] LABS: Anion Gap 11 mmol/L (10-20); BUN (Urea Nitrogen) 26 mg/dL (9.8-20.1); Calc. Creatinine Clearance 62 mL/min (70-130); Calcium 8.3 mg/dL (7.8-10.44); Carbon Dioxide 23 mmol/L (23-31); Chloride 104 mmol/L (98-107); Glucose 143 mg/dL (80-115); Magnesium 1.7 mg/dL (1.6-2.6); Sodium 135 mmol/L (136-145)
[2020-11-13] MEDS ORDERED: Magnesium 2 GM/50 ML 2 GM in Premix Bag 1 BAG IVPB SCH (08:00)
[2020-11-13] MEDS: Enoxaparin Sodium 30 MG/0.3 ML SYRINGE SC SCH (08:29)
[2020-11-13] MEDS: Carvedilol 6.25 MG TAB PO SCH ×2 (08:29→17:48)
[2020-11-13] MEDS: hydrALAZINE 25 MG TAB PO SCH ×3 (08:30→21:24)
[2020-11-13] MEDS: metFORMIN 500 MG TAB PO SCH ×2 (08:30→17:48)
[2020-11-13] MEDS: Famotidine 20 MG TAB PO SCH (08:31)
[2020-11-13] MEDS: Potassium Chloride 20 MEQ TAB PO SCH ×3 (08:31→17:48)
--- NOTE | 2020-11-13 10:43 | PDOC.HOSPP ---
- Subjective Encounter Date: 11/13/20 Encounter Time: 08:45 Subjective: Patient seen and examined for sepsis due to UTI. Continues to have fever with generalized body aches. Also complains of nausea with poor appetite. - Objective Vital Signs & Weight: Vital Signs (12 hours) Temp Pulse Resp BP BP Pulse Ox 11/13/20 08:30 84 174/73 H 11/13/20 08:29 174/73 H 11/13/20 07:58 102.2 F H 84 16 174/73 H 96 11/13/20 06:43 69 11/13/20 04:00 98.3 F 62 15 163/82 H 94 L 11/13/20 00:22 97.7 F 58 L 14 143/77 H 92 L Weight Admit Weight 192 lb 11.2 oz Weight 192 lb 11.2 oz I&O: 11/12/20 11/13/20 11/14/20 06:59 06:59 06:59 Intake Total 900 800 Output Total 520 2050 Balance 380 -1250 Result Diagrams: 11/13/20 05:20 11/13/20 05:20 Additional Labs: Accuchecks 11/13/20 11/12/20 11/12/20 05:42 21:14 16:11 POC Glucose 138 H 213 H 156 H 11/12/20 11:52 POC Glucose 257 H Abnormal Lab Results - Last 48 hrs 11/12/20 05:45: Sodium 132 L, Potassium 3.0 L, Carbon Dioxide 21 L, BUN 29 H, Creatinine 1.35 H, Albumin 3.0 L 11/12/20 05:45: WBC 14.8 H, Neutrophils % 95.4 H, Lymphocytes % 2.1 L, Basophils % 1.1 H, Neutrophils # 14.1 H, Lymphocytes # 0.3 L 11/13/20 05:20: Sodium 135 L, Potassium 3.0 L, BUN 26 H, Creatinine 1.18 H 11/13/20 05:20: WBC 13.3 H, Neutrophils % 89.5 H, Lymphocytes % 5.6 L, Neutrophils # 11.9 H, Lymphocytes # 0.7 L, Monocytes # 0.6 H Radiology Reviewed by me: Yes (CT abdomenleft hydronephrosis) Hospitalist ROS - Review of Systems Constitutional: reports: fever, weakness, malaise. denies: chills, sweats, other Cardiovascular: denies: chest pain, palpitations, orthopnea, paroxysmal noc. dyspnea, edema, light headedness, other Gastrointestinal: reports: nausea. denies: vomiting, abdominal pain, diarrhea, constipation, melena, hematochezia, other - Medication Medications: Active Medications Generic Name Dose Route Start Last Admin Trade Name Freq PRN Reason Stop Dose Admin Acetaminophen 650 mg 11/11/20 21:29 11/13/20 06:44 Acetaminophen 325 Mg Tab PO 650 mg Q4H PRN Administration Headache/Fever/Mild Pain (1-3) Carvedilol 12.5 mg 11/12/20 08:00 11/13/20 08:29 Carvedilol 6.25 Mg Tab PO 12.5 mg BID-WM PRATIK Administration Enoxaparin Sodium 30 mg 11/12/20 09:00 11/13/20 08:29 Enoxaparin Sodium 30 Mg/0.3 Ml Syringe SC 30 mg 0900 PRATIK Administration Famotidine 20 mg 11/12/20 09:00 11/13/20 08:31 Famotidine 20 Mg Tab PO 20 mg DAILY PRATIK Administration Hydralazine HCl 25 mg 11/12/20 09:00 11/13/20 08:30 Hydralazine 25 Mg Tab PO 25 mg TID PRATIK Administration Sodium Chloride 1,000 mls @ 75 mls/hr 11/11/20 22:00 11/13/20 01:39 Normal Saline 0.9% IV 1,000 mls .[id number] PRATIK Administration Ceftriaxone Sodium 2 gm/ 100 mls @ 200 mls/hr 11/11/20 22:00 11/12/20 23:47 Sodium Chloride IVPB 100 mls 2200 PRATIK Administration Magnesium Sulfate 2 gm/ Device 50 mls @ 50 mls/hr 11/13/20 08:00 11/13/20 08:29 IVPB 11/13/20 12:00 50 mls NOW PRATIK Administration Insulin Human Lispro 0 units 11/12/20 06:12 11/12/20 21:32 Humalog 300 Units/3 Ml Vial SC 3 unit .MILD SLIDING SCALE PRN Administration Mild Correctional Scale Labetalol HCl 20 mg 11/12/20 01:10 11/13/20 06:43 Labetalol Hcl 100 Mg/20 Ml Vial SLOW IVP 20 mg Q4H PRN Administration SBP > 160 use first Metformin HCl 1,000 mg 11/12/20 08:00 11/13/20 08:30 Metformin 500 Mg Tab PO 1,000 mg BID-WM PRATIK Administration Potassium Chloride 20 meq 11/13/20 08:00 11/13/20 08:31 Potassium Chloride 20 Meq Tab PO 11/14/20 08:01 20 meq TID-WM PRATIK Administration Hospitalist Exam Vitals: Vital Signs (12 hours) Temp Pulse Resp BP BP Pulse Ox 11/13/20 08:30 84 174/73 H 11/13/20 08:29 174/73 H 11/13/20 07:58 102.2 F H 84 16 174/73 H 96 11/13/20 06:43 69 11/13/20 04:00 98.3 F 62 15 163/82 H 94 L 11/13/20 00:22 97.7 F 58 L 14 143/77 H 92 L Weight Admit Weight 192 lb 11.2 oz Weight 192 lb 11.2 oz General Appearance: ill appearing Heart: RRR, no gallops Respiratory: no wheezes, no ronchi Gastrointestinal: soft, non-tender, normal bowel sounds Extremities: no cyanosis Neurological: no new deficit Musculoskeletal: generalized weakness Psychiatric: normal affect, A&O x 3 Hosp A/P (1) Sepsis due to urinary tract infection Code(s): A41.9 - SEPSIS, UNSPECIFIED ORGANISM; N39.0 - URINARY TRACT INFECTION, SITE NOT SPECIFIED Status: Acute (2) Diabetes type 2, uncontrolled Code(s): E11.65 - TYPE 2 DIABETES MELLITUS WITH HYPERGLYCEMIA Status: Chronic (3) Hypertension Code(s): I10 - ESSENTIAL (PRIMARY) HYPERTENSION Status: Chronic (4) Obesity (BMI 30.0-34.9) Code(s): E66.9 - OBESITY, UNSPECIFIED Status: Chronic - Plan DVT proph w/lovenox, DVT proph w/SCDs 70-year-old female with diabetes mellitus type 2 and hypertension presents with fever along with generalized body aches. CT abdomen was consistent with bilateral nephrolithiasis with proximal left ureteral calculus with mild left hydronephrosis. Generalized weakness/sepsis due to complicated UTI/left ureteropelvic calculi causing left-sided hydronephrosisPOA Patient presented with fever along with generalized body aches. Work-up consistent with complicated UTI. No cultures available at this time. Patient underwent cystoscopy with left doubleJ stent placement on 11/11 Plan: Will continue ceftriaxone. Cultures unavailable Electrolyte abnormalityhypokalemia/hypomagnesemia Plan we will replace magnesium and potassium. Will add potassium to IV fluids. Recheck labs in a.m. Diabetes mellitus type 2uncontrolled Plan: Will continue metformin. Continue sliding scale. Patient declined oral hypoglycemics Hypertensionuncontrolled probably due to generalized body aches Plan: Continue carvedilol with hydralazine. Other issues per previous notes
[2020-11-13] MEDS: NS 0.9% w/ 20 MEQ KCL 1,000 ML/1,000 ML BAG IV SCH (12:14)
--- NOTE | 2020-11-13 14:49 | PRG ---
DATE OF SERVICE: 11/12/2020 SUBJECTIVE: She feels well. She has not had any significant pain. She has been afebrile since her surgery. OBJECTIVE: VITAL SIGNS: T-max 98.1, blood pressure 138/79, saturation 95% on room air. ABDOMEN: Soft, nontender. No palpable masses. Liver and spleen not palpable. IMPRESSION: Status post left ureteral stent for an obstructing left ureteropelvic junction stone. Her urinalysis performed at [facility] was suggestive of infection. She had an elevated white count, but she has remained afebrile. I am unable to determine whether a culture was obtained there, but we will contact the laboratory to ensure that was obtained. Cultures performed at this time may not be helpful based on recent antibiotic therapy. RECOMMENDATIONS: Continue current management. Job ID: [id number]
[2020-11-13] MEDS: HYDROcodone/Acetaminophen 5/325 mg Tablet PO PRN (18:13)
--- NOTE | 2020-11-13 18:49 | RAD ---
Exam: Chest one view HISTORY:Shortness of breath Comparison: 12/27/2014 FINDINGS: Cardiac silhouette:Enlarged. Aorta: Atherosclerotic Pulmonary vessels: Normal Costophrenic angles: Clear LUNGS: No masses or consolidation. Chronic changes of the lung parenchyma. Pneumothorax: None Osseous abnormalities: None IMPRESSION: Atherosclerosis. No acute cardiopulmonary process.
[2020-11-13] MEDS ORDERED: Sodium Chloride 0.9% 1,000 ML IV SCH (19:15)
[2020-11-13 19:36] LABS: Anion Gap 12 mmol/L (10-20); BUN (Urea Nitrogen) 21 mg/dL (9.8-20.1); Calc. Creatinine Clearance 73 mL/min (70-130); Calcium 7.7 mg/dL (7.8-10.44); Carbon Dioxide 21 mmol/L (23-31); Chloride 107 mmol/L (98-107); Glucose 111 mg/dL (80-115); Potassium 3.5 mmol/L (3.5-5.1); Sodium 136 mmol/L (136-145)
[2020-11-13 19:59] LABS: CKMB 1.8 ng/mL (0-6.6)
[2020-11-13] MEDS: cefTRIAXone\\ROCEPHIN 2 GM in Sodium Chloride 0.9% 100 ML IVPB SCH (21:23)
[2020-11-14] MEDS: NS 0.9% w/ 20 MEQ KCL 1,000 ML/1,000 ML BAG IV SCH ×2 (00:30→19:09)
[2020-11-14] MEDS: HYDROcodone/Acetaminophen 5/325 mg Tablet PO PRN ×3 (07:53→19:08)
[2020-11-14] MEDS: Famotidine 20 MG TAB PO SCH (09:03)
[2020-11-14] MEDS: metFORMIN 500 MG TAB PO SCH ×2 (09:04→18:23)
[2020-11-14] MEDS: hydrALAZINE 25 MG TAB PO SCH ×3 (09:04→21:03)
[2020-11-14] MEDS: Carvedilol 6.25 MG TAB PO SCH ×2 (09:05→18:23)
[2020-11-14] MEDS: Potassium Chloride 20 MEQ TAB PO SCH (09:06)
[2020-11-14] MEDS: Enoxaparin Sodium 30 MG/0.3 ML SYRINGE SC SCH (09:06)
[2020-11-14 09:36] LABS: #Eosinphils 0.1 thou/uL (0.0-0.7); #Lymphocytes 0.7 thou/uL (1.20-3.40); #Monocytes 1.2 thou/uL (0.11-0.59); #Neutrophils 8.7 thou/uL (1.40-6.50); %Basophils 0.3 % (0.0-1.0); %Eosinophils 0.5 % (0.0-10.0); %Lymphocytes 6.9 % (21.0-51.0); %Monocytes 11.1 % (0.0-10.0); %Neutrophils 81.2 % (42.0-75.0); Hemoglobin 12.1 g/dL (12.0-16.0); Mean Corpuscular HGB CONC 32.7 g/dL (32.0-36.0); Mean Corpuscular Hemoglobin 28.3 pg (27.0-31.0); Mean Corpuscular Volume 86.5 fL (78.0-98.0); Mean Platelet Volume 8.6 fL (7.4-10.4); Platelet Count 197 thou/uL (130-400); RBC Distribution Width 13.2 % (11.5-14.5); Red Blood Cell (RBC) Count 4.26 mill/uL (4.20-5.40); White Blood Cell (WBC) Count 10.7 thou/uL (4.8-10.8)
[2020-11-14 09:58] LABS: ALT (SGPT) 15 U/L (8-55); AST (SGOT) 17 U/L (5-34); Albumin 2.8 g/dL (3.4-4.8); Alkaline Phosphatase 84 U/L (40-110); Anion Gap 11 mmol/L (10-20); BUN (Urea Nitrogen) 14 mg/dL (9.8-20.1); Bilirubin, Total 0.4 mg/dL (0.2-1.2); Calc. Creatinine Clearance 70 mL/min (70-130); Calcium 7.7 mg/dL (7.8-10.44); Carbon Dioxide 22 mmol/L (23-31); Chloride 105 mmol/L (98-107); Globulin 2.6 g/dL (2.4-3.5); Glucose 145 mg/dL (80-115); Potassium 3.5 mmol/L (3.5-5.1); Protein, Total 5.4 g/dL (5.8-8.1); Sodium 134 mmol/L (136-145)
[2020-11-14 10:19] LABS: CKMB 0.9 ng/mL (0-6.6)
[2020-11-14] MEDS ORDERED: Saccharomyces boulardii 250 MG CAP PO SCH (21:00)
[2020-11-14] MEDS: cefTRIAXone\\ROCEPHIN 2 GM in Sodium Chloride 0.9% 100 ML IVPB SCH (22:04)
[2020-11-15 05:44] LABS: #Basophils 0.1 thou/uL (0.0-0.2); #Eosinphils 0.2 thou/uL (0.0-0.7); #Lymphocytes 1.2 thou/uL (1.20-3.40); #Monocytes 1.6 thou/uL (0.11-0.59); #Neutrophils 8.8 thou/uL (1.40-6.50); %Basophils 0.5 % (0.0-1.0); %Eosinophils 1.7 % (0.0-10.0); %Lymphocytes 10.3 % (21.0-51.0); %Monocytes 13.5 % (0.0-10.0); Hemoglobin 11.7 g/dL (12.0-16.0); Mean Corpuscular HGB CONC 32.4 g/dL (32.0-36.0); Mean Corpuscular Volume 86.3 fL (78.0-98.0); Mean Platelet Volume 8.8 fL (7.4-10.4); Platelet Count 201 thou/uL (130-400); RBC Distribution Width 13.2 % (11.5-14.5); White Blood Cell (WBC) Count 11.8 thou/uL (4.8-10.8)
[2020-11-15] MEDS: Acetaminophen 325 MG TAB PO PRN (06:41)
[2020-11-15] MEDS ORDERED: Magnesium 2 GM/50 ML 2 GM in Premix Bag 1 BAG IVPB SCH (08:00)
[2020-11-15] MEDS ORDERED: Amlodipine 5 MG TAB PO PRN (08:19)
[2020-11-15] MEDS ORDERED: Potassium Bicarbonate/Cit Ac 20 MEQ TAB PO SCH (08:30)
[2020-11-15] MEDS: Famotidine 20 MG TAB PO SCH (09:33)
[2020-11-15] MEDS: Carvedilol 6.25 MG TAB PO SCH (09:33)
[2020-11-15] MEDS: metFORMIN 500 MG TAB PO SCH (09:33)
[2020-11-15] MEDS: hydrALAZINE 25 MG TAB PO SCH ×2 (09:34→15:32)
[2020-11-15] MEDS: Enoxaparin Sodium 30 MG/0.3 ML SYRINGE SC SCH (10:54)
[2020-11-15] MEDS ORDERED: diphenhydrAMINE 25 MG CAP PO PRN (12:52)
[2020-11-15] MEDS: NS 0.9% w/ 20 MEQ KCL 1,000 ML/1,000 ML BAG IV SCH (12:55)
[2020-11-15] MEDS ORDERED: Cefdinir 300 MG CAP PO SCH (13:00)
[2020-11-15 15:15] VITALS: BP 126/72; TEMP 97.6
--- NOTE | 2020-11-15 18:07 | PDOC.DS.DS ---
Provider Date of Admission: 11/11/20 22:00 Date of Discharge: 11/15/20 Admitting Provider: Sd Varma MD Consultations: Urology Primary Care Physician: Rj Tony DO Course Hospital Course: Patient is a 70-year-old female with diabetes mellitus type 2, hypertension and hyperlipidemia presented to [facility] with fever along with generalized weakness. Initial vital signs showed temperature 99.1 with respiration of 18, pulse rate of 114 with blood pressure of 158/90. CT scan of the abdomen and pelvis showed bilateral nephrolithiasis with proximal left ureteral calculus with mild left hydronephrosis. Urinalysis showed 3+ bacteria with 4-6 WBC, nitrite and leukocyte esterase positive she was transferred to this facility for urology consultation. She underwent cystoscopy with left double-J stent placement on 11/[address] Sims. She was placed on ceftriaxone which was continued. WBC count has improved from 19.1-10.7. Left shift have since resolved. She also had acute kidney injury with creatinine of 1.51 on admission that has improved significantly. Patient also had electrolyte abnormalities which were replaced. Antibiotics will be transitioned to oral Omnicef since no cultures are available. I discussed the plan of care with urology who agrees with above plan of care Final diagnosis: Severe sepsis due to complicated UTI Generalized weakness due to above Left ureteropelvic calculi causing left-sided hydronephrosis status post cystoscopy and stent placement this admission Multiple electrolyte abnormality including hypokalemia/hyponatremia/hypomagnes emia Acute kidney injury on CKD stage IIIPOA Diverticulosis Cholelithiasis on the CT scan Suspected fatty liver Penicillin and sulfa allergy Hypertension Diabetes mellitus type 2 History of CVA Hyperlipidemia Asthma Patient understands above plan of care Resuscitation Status: 11/11/20 21:29 Resuscitation Status Routine Resuscitation Status: FULL: Full Resuscitation Lab Results: 11/15/20 05:18 11/14/20 09:12 Abnormal Lab Results - Last 48 hrs 11/13/20 19:06: Troponin I 0.036 H 11/13/20 19:06: Carbon Dioxide 21 L, BUN 21 H, Calcium 7.7 L 11/14/20 09:12: Sodium 134 L, Carbon Dioxide 22 L, Calcium 7.7 L, Serum Total Protein 5.4 L, Albumin 2.8 L, Albumin/Globulin Ratio 1.1 L 11/14/20 09:12: Troponin I 0.035 H 11/14/20 09:12: Neutrophils % 81.2 H, Lymphocytes % 6.9 L, Monocytes % 11.1 H, Neutrophils # 8.7 H, Lymphocytes # 0.7 L, Monocytes # 1.2 H 11/15/20 05:18: Magnesium 1.5 L 11/15/20 05:18: WBC 11.8 H, Hgb 11.7 L, Lymphocytes % 10.3 L, Monocytes % 13.5 H, Neutrophils # 8.8 H, Monocytes # 1.6 H Vitals: Vital Signs (12 hours) Temp Pulse Resp BP BP Pulse Ox 11/15/20 11:30 97.6 F 67 12 126/72 92 L 11/15/20 07:48 98.3 F 70 12 179/79 H 94 L Weight Admit Weight 192 lb 11.2 oz Weight 192 lb 11.2 oz Physical Exam: The patient was seen and examined on the day of discharge. General Appearance: NAD Neck: supple, no JVD Respiratory: no wheezes, no ronchi Cardiovascular: RRR, no gallops Gastrointestinal: non-tender, normal bowel sounds Extremities: no cyanosis Problem (1) Sepsis due to urinary tract infection Code(s): A41.9 - SEPSIS, UNSPECIFIED ORGANISM; N39.0 - URINARY TRACT INFECTION, SITE NOT SPECIFIED Status: Acute (2) Diabetes type 2, uncontrolled Code(s): E11.65 - TYPE 2 DIABETES MELLITUS WITH HYPERGLYCEMIA Status: Chronic (3) Hypertension Code(s): I10 - ESSENTIAL (PRIMARY) HYPERTENSION Status: Chronic (4) Obesity (BMI 30.0-34.9) Code(s): E66.9 - OBESITY, UNSPECIFIED Status: Chronic Plan Prescriptions: Saccharomyces boulardii [Florastor] 250 mg PO HS #30 cap Cefdinir [Omnicef] 300 mg PO BID #24 cap Home Medications: Medication Instructions Recorded Confirmed Type Aspirin [Ecotrin Regular Strength] 325 mg PO DAILY #30 tab 03/29/18 Rx Atorvastatin Calcium [Lipitor] 20 mg PO HS #30 tab 03/29/18 11/12/20 Rx Carvedilol [Coreg] 12.5 mg PO BID #60 tab 03/29/18 11/12/20 Rx hydrALAZINE [Apresoline] 25 mg PO BID 11/12/20 11/12/20 History metFORMIN [Glucophage] 1,000 mg PO BID 11/12/20 11/12/20 History Cefdinir [Omnicef] 300 mg PO BID #24 cap 11/15/20 Rx Saccharomyces boulardii [Florastor] 250 mg PO HS #30 cap 11/15/20 Rx Allergies: belladonna alkaloids Allergy (Verified 12/05/19 21:32) Penicillins Allergy (Verified 12/05/19 21:32) Sulfa (Sulfonamide Antibiotics) Allergy (Verified 12/05/19 21:32) Discharge Instructions:: Antibiotic was sent in to [facility] [address]. Referrals: Rj Tony DO [Primary Care Provider] - 7 Days Tyron Sims MD [Active] - 7 Days Disposition: HOME Quality CORE MEASURES:: N/A
== END 2020-11-15 16:15 | disposition home or self-care (01) | DRG 854 ==
LOC: ERS 19:10 → SDC/OP 21:04 → SJJU 22:00
PROVIDERS: ADMIT Internal Medicine; ATTEND Internal Medicine
PROC: 0T778DZ Dilation of Left Ureter with Intraluminal Device, Via Natural or Artificial Opening Endoscopic (ICD-10-PCS; principal; 2020-11-11)
PROC: BT1FZZZ Fluoroscopy of Left Kidney, Ureter and Bladder (ICD-10-PCS; 2020-11-11)
DX: A41.9 Sepsis, unspecified organism (principal); N17.9 Acute kidney failure, unspecified; E87.1 Hypo-osmolality and hyponatremia; N13.6 Pyonephrosis; R65.20 Severe sepsis without septic shock; Z20.822 Contact with and (suspected) exposure to COVID-19; N18.30 Chronic kidney disease, stage 3 unspecified; E87.6 Hypokalemia; E83.42 Hypomagnesemia; K57.90 Diverticulosis of intestine, part unspecified, without perforation or abscess without bleeding; K80.20 Calculus of gallbladder without cholecystitis without obstruction; K76.0 Fatty (change of) liver, not elsewhere classified; I12.9 Hypertensive chronic kidney disease with stage 1 through stage 4 chronic kidney disease, or unspecified chronic kidney disease; E11.22 Type 2 diabetes mellitus with diabetic chronic kidney disease; E78.5 Hyperlipidemia, unspecified; J45.909 Unspecified asthma, uncomplicated; E78.00 Pure hypercholesterolemia, unspecified; E11.65 Type 2 diabetes mellitus with hyperglycemia; E66.9 Obesity, unspecified; Z68.32 Body mass index [BMI] 32.0-32.9, adult; Z88.0 Allergy status to penicillin; Z88.2 Allergy status to sulfonamides; Z86.73 Personal history of transient ischemic attack (TIA), and cerebral infarction without residual deficits; Z90.49 Acquired absence of other specified parts of digestive tract; Z90.89 Acquired absence of other organs; Z90.710 Acquired absence of both cervix and uterus; Z88.8 Allergy status to other drugs, medicaments and biological substances; Z79.899 Other long term (current) drug therapy; Z79.82 Long term (current) use of aspirin; Z79.84 Long term (current) use of oral hypoglycemic drugs
CPT/HCPCS: 0240U; 36415; 36416; 71045; 74176; 80048; 80053; 80069; 81003; 81015; 82553; 82805; 83735; 84100; 84484; 85025; 96365; 96366; 96367; 96375; J0696; J1100; J1650; J1815; J1885; J2405; J2704; J2765; J3010; J3475; J3480; J3490; Q0162

== ENCOUNTER 2020-11-25 13:52 | Outpatient (CLI) | payer MEDICARE ==
[2020-11-26 04:32] LABS: SARS-CoV-2 PCR by NAA Not Detected (NotDetected)
== END 2020-11-25 13:53 | disposition home or self-care (01) ==
LOC: LABBT 13:52
PROVIDERS: ATTEND Urology
DX: Z01.812 Encounter for preprocedural laboratory examination (principal); Z20.822 Contact with and (suspected) exposure to COVID-19
CPT/HCPCS: U0003; U0005; 87635

== ENCOUNTER 2020-11-26 11:32 | Day surgery (SDC) | payer SELFPAY ==
[~2020-11-26 11:32] MED LIST changes: -Glycopyrrolate 0.2 MG/ML 5 ML SYRINGE ONE; -Lidocaine 1% PF 5 ML VIAL ONE; -Rocuronium Bromide 10 MG/ML (10ML VIAL) ONE; -Succinylcholine 200 MG/10 ml SYRINGE FS ONE; +ePHEDrine 50 MG/ML VIAL ONE
[2020-11-26] MEDS ORDERED: Levofloxacin 500 mg/D5W 100 ml Premix Bag ONE (12:20)
[2020-11-26] MEDS ORDERED: Fentanyl 100 MCG/2 ML VIAL ONE (14:08)
[2020-11-26] MEDS ORDERED: Iothalamate Meglumine 60% 50 ML VIAL FS ONE (14:18)
[2020-11-26] MEDS ORDERED: hydrALAZINE 20 MG/ML VIAL ONE (15:35)
[2020-11-26] MEDS ORDERED: Ondansetron PF 4 MG/2 ML Vial ONE (15:43)
[2020-11-26] MEDS ORDERED: Promethazine HCl 25 MG/ML VIAL ONE (15:56)
[2020-11-26] MEDS ORDERED: HYDROcodone/Acetaminophen 5/325 mg Tablet ONE ×2 (17:14)
== END 2020-11-26 17:30 | disposition home or self-care (01) ==
LOC: SDC 11:32
PROVIDERS: ATTEND Urology
PROC: 0TC78ZZ Extirpation of Matter from Left Ureter, Via Natural or Artificial Opening Endoscopic (ICD-10-PCS; principal; 2020-11-26)
PROC: 0T778DZ Dilation of Left Ureter with Intraluminal Device, Via Natural or Artificial Opening Endoscopic (ICD-10-PCS; principal; 2020-11-26)
DX: N20.1 Calculus of ureter (principal); E11.9 Type 2 diabetes mellitus without complications; I10 Essential (primary) hypertension; Z88.0 Allergy status to penicillin; Z88.2 Allergy status to sulfonamides; Z88.8 Allergy status to other drugs, medicaments and biological substances; Z79.84 Long term (current) use of oral hypoglycemic drugs; Z79.899 Other long term (current) drug therapy
CPT/HCPCS: 74420; J0360; J1100; J1956; J2405; J2550; J2704; J3010; J3490

== ENCOUNTER 2022-10-18 18:41 | Emergency (ER) | payer MEDICARE, SELFPAY ==
[2022-10-18 19:24] LABS: #Basophils 0.1 thou/uL (0.0-0.2); #Eosinphils 0.5 thou/uL (0.0-0.7); #Lymphocytes 2.5 thou/uL (1.20-3.40); #Monocytes 1.1 thou/uL (0.11-0.59); #Neutrophils 7.7 thou/uL (1.40-6.50); %Basophils 0.8 % (0.0-1.0); %Eosinophils 4.2 % (0.0-10.0); %Lymphocytes 21.3 % (21.0-51.0); %Monocytes 9.2 % (0.0-10.0); %Neutrophils 64.6 % (42.0-75.0); Hemoglobin 13.7 g/dL (12.0-16.0); Mean Corpuscular HGB CONC 32.6 g/dL (32.0-36.0); Mean Corpuscular Hemoglobin 28.1 pg (27.0-31.0); Mean Corpuscular Volume 86.3 fl (78.0-98.0); Mean Platelet Volume 8.7 fL (7.4-10.4); Platelet Count 254 10x3/uL (130-400); Red Blood Cell (RBC) Count 4.89 mill/uL (4.20-5.40); White Blood Cell (WBC) Count 11.9 10x3/uL (4.8-10.8)
[2022-10-18] MEDS ORDERED: hydrALAZINE 20 MG/ML VIAL ONE (19:42)
[2022-10-18 19:43] LABS: ALT (SGPT) 12 U/L (8-55); AST (SGOT) 20 U/L (5-34); Albumin 3.9 g/dL (3.4-4.8); Alkaline Phosphatase 105 U/L (40-110); Anion Gap 15 mmol/L (10-20); BUN (Urea Nitrogen) 16 mg/dL (9.8-20.1); Bilirubin, Total 0.5 mg/dL (0.2-1.2); Calc. Creatinine Clearance 0 mL/min (70-130); Calcium 8.9 mg/dL (7.8-10.44); Carbon Dioxide 24 mmol/L (23-31); Chloride 104 mmol/L (98-107); Estimated GFR 66; Globulin 3.2 g/dL (2.4-3.5); Glucose 92 mg/dL (83-110); Potassium 4.3 mmol/L (3.5-5.1); Protein, Total 7.1 g/dL (5.8-8.1); Sodium 139 mmol/L (136-145)
[2022-10-18] MEDS ORDERED: Acetaminophen 500 MG TAB ONE (19:48)
== END 2022-10-18 20:35 | disposition home or self-care (01) ==
LOC: ERS 18:41
DX: I10 Essential (primary) hypertension (principal); D72.829 Elevated white blood cell count, unspecified; E11.9 Type 2 diabetes mellitus without complications; E78.00 Pure hypercholesterolemia, unspecified; Z79.82 Long term (current) use of aspirin; Z79.84 Long term (current) use of oral hypoglycemic drugs
CPT/HCPCS: 71045; 80053; 84484; 85025; 93005; 96374; 99284; J0360

== ENCOUNTER 2023-01-01 16:42 | Emergency (ER) | payer SELFPAY ==
[2023-01-01] MEDS ORDERED: Boostrix 0.5 ML (Tdap) VIAL (>/=7 yrs of age) ONE (18:25)
[2023-01-01] MEDS ORDERED: Morphine 4 MG/ML VIAL ONE (18:25)
[2023-01-01] MEDS ORDERED: Ondansetron ODT 4 MG TAB ONE (18:25)
== END 2023-01-01 20:07 | disposition home or self-care (01) ==
LOC: ERS 16:42
DX: S01.01XA Laceration without foreign body of scalp, initial encounter (principal); I10 Essential (primary) hypertension; E11.9 Type 2 diabetes mellitus without complications; E78.00 Pure hypercholesterolemia, unspecified; W01.198A Fall on same level from slipping, tripping and stumbling with subsequent striking against other object, initial encounter; Z23 Encounter for immunization
CPT/HCPCS: 12001; 70450; 72125; 72170; 90471; 90715; 96372; J2270; Q0162

== ENCOUNTER 2025-04-29 21:02 | Emergency (ER) | payer SELFPAY ==
[2025-04-29] MEDS ORDERED: HYDROcodone/Acetaminophen 5/325 mg Tablet ONE (22:30)
== END 2025-04-30 00:15 | disposition home or self-care (01) ==
LOC: ERS 21:02
DX: S93.401A Sprain of unspecified ligament of right ankle, initial encounter (principal); M25.561 Pain in right knee; I10 Essential (primary) hypertension; E11.9 Type 2 diabetes mellitus without complications; W01.0XXA Fall on same level from slipping, tripping and stumbling without subsequent striking against object, initial encounter; Y92.009 Unspecified place in unspecified non-institutional (private) residence as the place of occurrence of the external cause
CPT/HCPCS: 99283